=== PATIENT | female | born 1945 | race Caucasian/White ===

== ENCOUNTER → 2019-08-27 | Outpatient (CLI) | payer MEDICARE, OTHER ==
--- NOTE | 2019-08-27 16:06 | Diagnostic Imaging Report ---
EXAM: Bone mineral density study 08/27/2019 12:22 PM INDICATION: ^MENOPAUSE/OSTEOPOROSIS COMPARISON: Previous DEXA 07/18/2015. Baseline DEXA 07/18/2015 FINDINGS: Evaluation of the left hip and lumbar spine was performed. The study is technically adequate. The patient's fracture risk is compared to an age-matched control. The patient denies prior surgery/fracture of the spine, hips or forearm. LEFT HIP * Femoral neck bone mineral density: 0.758 gm/cm2, T-score is -0.8, Z-score is 1.2. * Total bone mineral density: 0.837 gm/cm2, T-score is -0.9, Z-score is 0.9. * BMD change versus baseline is +4.1% LUMBAR SPINE * Total bone mineral density: 0.961 gm/cm2, T-score is -0.8, Z-score is 1.6. * BMD change versus baseline is +3.0% IMPRESSION: 1. Bone mineralization by WHO Classification is normal, the fracture risk is not increased. 2. Since the previous (baseline) exam there has been significant improvement of bone mineral density at the left hip and lumbar spine. Signed by: Dr. Montez Macdonald M.D. on 08/27/2019 4:03 PM
--- NOTE | 2019-09-09 10:01 | Diagnostic Imaging Report ---
#[id number] - MGSCRBIL #BILATERAL DIGITAL SCREENING MAMMOGRAM WITH CAD: 08/27/2019 CLINICAL: Routine screening. Comparison is made to exams dated: 07/18/2015 mammogram - [facility] and 04/29/2012 mammogram - [facility]. There are scattered fibroglandular elements in both breasts. Current study was also evaluated with a Computer Aided Detection (CAD) system. There are benign calcifications in both breasts. There also are post operative findings in both breasts. No significant masses, calcifications, or other findings are seen in either breast. There has been no significant interval change. IMPRESSION: BENIGN There is no mammographic evidence of malignancy. A 1 year screening mammogram is recommended. The patient will be notified by letter of the results. BRYANT diop/rayne:09/07/2019 15:20:45 Wrapping Clerk: Lili MALDONADO(Barb)(Kayley), [facility] letter sent: Compared to Prior B9 Mammogram BI-RADS: 2 Benign
== END ==
LOC: MAMMO 12:14
PROVIDERS: ATTEND Internal Medicine
DX: Z12.31 Encounter for screening mammogram for malignant neoplasm of breast (principal); M81.0 Age-related osteoporosis without current pathological fracture
CPT/HCPCS: 77067; 77080

== ENCOUNTER → 2019-10-11 | Outpatient (CLI) | payer MEDICARE, OTHER ==
[~2019-10-11] MED LIST: IOPAMIDOL 370 MG/ML 200 ML INFUS..BTL INJ ONE; SODIUM CHLORIDE 0.9% 250ML 250 ML ONE
[2019-10-11 11:48] LABS: CREATININE, SERUM 1.01 mg/dL (0.57-1.11)
--- NOTE | 2019-10-12 09:03 | Diagnostic Imaging Report ---
EXAMINATION: CT of the abdomen and pelvis with contrast. TECHNIQUE: Spiral CT images of the abdomen and pelvis were performed from the lung bases to the lesser trochanters before and after the intravenous administration of 150 cc of Isovue-370 and the oral administration of water. Imaging was performed in prone position per CT urogram protocol Coronal and sagittal reformatted images were obtained. COMPARISON: None. CLINICAL HISTORY:Recurrent UTIs, hematuria. Patient also reports history of multiple prior back surgeries, deep venous thrombosis status post IVC filter placement, hysterectomy, cholecystectomy, and prior bladder surgeries. DISCUSSION: ABDOMEN/PELVIS: LOWER THORAX:Subsegmental atelectasis in the dependent portions of the right middle lobe and lingula. Lung bases are otherwise unremarkable. HEPATOBILIARY: No focal hepatic lesions. No intra-or extrahepatic biliary ductal dilation. The gallbladder has been removed with metallic clips in the gallbladder fossa. SPLEEN: No splenomegaly. PANCREAS: No focal masses or ductal dilatation. ADRENALS: No adrenal nodules. KIDNEYS/URETERS: No renal, ureteral, or bladder calculi. Excretory/urographic phase images show no filling defects within the upper collecting systems, opacified segments of ureter, or urinary bladder. Short segments of the proximal left and distal right ureter are unopacified, likely related to peristalsis, as no adjacent soft tissue mass is appreciated. No solid or cystic renal mass lesion. PELVIC ORGANS/BLADDER: The urinary bladder is unremarkable. Uterus is not identified in keeping with reported hysterectomy. No adnexal mass. PERITONEUM/RETROPERITONEUM: No ascites. No pneumoperitoneum. LYMPH NODES: No pelvic sidewall, retroperitoneal, or mesenteric lymphadenopathy. VESSELS: There is mild atherosclerotic calcification of the abdominal aorta and renal artery ostia without aneurysmal dilatation. Portal vein, splenic vein, and central superior mesenteric vein are patent. Left common and external iliac venous stent is noted, along with an infrarenal IVC filter. GI TRACT: The large bowel is notable for multiple sigmoid diverticula without wall thickening or adjacent inflammatory change. There is no small bowel dilatation to suggest obstruction. Moderate sliding hiatal hernia. BONES AND SOFT TISSUE: No osseous destructive lesions. Multilevel degenerative disc changes and facet arthropathy of the lumbar spine. No soft tissue abnormalities. IMPRESSION: No urolithiasis or urothelial mass lesion to explain the reported history of hematuria. No acute intra-abdominal or pelvic CT abnormalities. Incidental findings include large bowel diverticulosis without evidence of diverticulitis, moderate sliding hiatal hernia, and changes of left iliac venous stenting and infrarenal IVC filter placement. Signed by: Dr. Renny Pittman M.D. on 10/12/2019 9:00 AM
== END ==
LOC: CT 11:06
PROVIDERS: ATTEND Urology
DX: R31.21 Asymptomatic microscopic hematuria (principal)
CPT/HCPCS: 36415; 74178; 82565; 84520; J7050; Q9967

== ENCOUNTER 2019-11-02 13:00 | Outpatient (RCR) | payer MEDICARE, OTHER ==
[2019-11-10] MEDS ORDERED: RAMIPRIL5 MG PO (15:48)
[2019-11-10] MEDS ORDERED: METOPROLOL SUCC25 MG PO (15:49)
[2019-11-10] MEDS ORDERED: METFORMIN HCL500 MG PO (15:49)
[2019-11-10] MEDS ORDERED: XARELTO20 MG PO (15:49)
[2019-11-10] MEDS ORDERED: MULTI-VITAMIN1 EACH PO (15:50)
[2019-11-10] MEDS ORDERED: [UNRECOGNIZED DRUG - OTHER] (15:50)
[2019-11-10] MEDS ORDERED: [UNRECOGNIZED DRUG - OTHER] PO (15:51)
[2019-11-10] MEDS ORDERED: DIGESTIVE ENZY1 EAC3 PO (15:51)
[2019-11-10] MEDS ORDERED: VIT E PO (15:52)
[2019-11-10] MEDS ORDERED: MAGNESIUM CALCIUM PO (15:52)
[2019-11-10] MEDS ORDERED: LUTEIN20 M1 PO (15:53)
[2019-11-10] MEDS ORDERED: NATTOKINASE PO (15:54)
[2019-11-10] MEDS ORDERED: [UNRECOGNIZED DRUG - OTHER] PO (15:55)
== END 2019-11-06 ==
LOC: PT 13:00
PROVIDERS: ATTEND Internal Medicine
DX: S60.221A Contusion of right hand, initial encounter (principal); R29.6 Repeated falls
CPT/HCPCS: 97139

== ENCOUNTER → 2019-11-12 | Day surgery (SDC) | payer MEDICARE, OTHER ==
[2019-11-10 12:41] LABS: BASOPHILS % 0.8 % (0.0-1.0); EOSINOPHILS # (AUTO) 0.2 (0.0-0.4); EOSINOPHILS % 3.5 % (0.0-6.0); HEMATOCRIT 37.5 % (34.2-44.1); HEMOGLOBIN 12.6 g/dL (12.0-16.0); LYMPHOCYTES # (AUTO) 2.1 (1.0-3.2); MEAN CORPUSCULAR HEMOGLOBIN 32.8 pg (28-32); MEAN CORPUSCULAR HGB CONC 33.6 g/dL (31-35); MEAN CORPUSCULAR VOLUME 97.7 fL (81-99); MONOCYTES # (AUTO) 0.5 (0.2-0.8); MONOCYTES % 9.8 % (4.4-11.3); NEUTROPHILS # (AUTO) 2.3 (2.1-6.9); NEUTROPHILS % 44.7 % (38.7-80.0); PLATELET COUNT 308 x10e3/uL (140-360); RED BLOOD COUNT 3.84 x10e6/uL (3.6-5.1)
[2019-11-10 12:59] LABS: INR 0.86; PROTHROMBIN TIME 12.2 seconds (11.9-14.5)
[2019-11-10 13:00] LABS: PARTIAL THROMBOPLASTIN TIME 24.7 seconds (23.8-35.5)
[2019-11-10 13:06] LABS: ANION GAP 11.3 mmol/L (8-16); CALCIUM 9.7 mg/dL (8.4-10.2); CREATININE, SERUM 0.94 mg/dL (0.57-1.11); POTASSIUM 4.3 mmol/L (3.5-5.1)
--- NOTE | 2019-11-10 13:30 | Diagnostic Imaging Report ---
EXAMINATION: CHEST 2 VIEWS INDICATION: Pre-operative COMPARISON: None FINDINGS: LINES/TUBES:None LUNGS:The lungs are well-inflated. No focal consolidation or pulmonary edema. PLEURA:No pleural effusion or pneumothorax. MEDIASTINUM:The cardiomediastinal silhouette appears normal in size and shape. BONES/SOFT TISSUES:No acute osseous injury. Postoperative findings of both shoulders with hardware intact. Old healed right rib fracture. ABDOMEN:No free air under the diaphragm. IMPRESSION: No focal pneumonia or pulmonary edema. Signed by: Rebecca Wagner MD on 11/10/2019 1:27 PM
[~2019-11-12] MED LIST changes: +B&O 60MG R/S 60 MG SUPP PR ONE; +DIGESTIVE ENZY1 EAC3 PO; +GENTAMICIN 80MG/NS 100 ML 200 ML IV ONE; +IOPAMIDOL 300MG/ML 50ML INFUS..BTL IV ONE; -IOPAMIDOL 370 MG/ML 200 ML INFUS..BTL INJ ONE; +IOTHALAMATE MEGLUMINE 17.20% 250 ML BTL ONE; +LIDOCAINE HCL 2% LOCAL INJ 5 ML SDV VIAL INJ ONE; +LUTEIN20 M1 PO; +MAGNESIUM CALCIUM PO; +METFORMIN HCL500 MG PO; +METOPROLOL SUCC25 MG PO; +MIDAZOLAM HCL 2 MG/2 ML VIAL ONE; +MULTI-VITAMIN1 EACH PO; +NATTOKINASE PO; +ONDANSETRON HCL INJ 2MG/ML 2ML 2 MG/ML VIAL ONE; +PROPOFOL IV EMULSION 10 MG/ML 20 ML VIAL ONE; +RAMIPRIL5 MG PO; +SEVOFLURANE INHAL SOLN 250 ML PEN BTL ONE; -SODIUM CHLORIDE 0.9% 250ML 250 ML ONE; +VIT E PO; +XARELTO20 MG PO; +[UNRECOGNIZED DRUG - OTHER]; +[UNRECOGNIZED DRUG - OTHER] PO; +[UNRECOGNIZED DRUG - OTHER] PO
--- NOTE | 2019-11-12 09:45 | NUR ---
SPIRITUAL CARE - Pre-Surgery Assessment: Pt in bed. Pt's at bedside. Pt reported supportive attention from family and friends. Intervention: I provided pastoral presence, hospitality, and sympathetic listening. I acquainted pt with availability of sql server developer while hospitalized. Outcome: Pt expressed appreciation for visit. No need for follow up indicated at this time. [facility] Department O: [phone]
[2019-11-12 12:15] VITALS: BP 144/82
--- NOTE | 2019-12-05 20:12 | Operative Report ---
DATE OF PROCEDURE: 11/12/2019 SURGEON: Emiliano Killian MD PREOPERATIVE DIAGNOSES: 1. Urinary tract infection. 2. Microscopic hematuria. POSTOPERATIVE DIAGNOSES: 1. Urinary tract infection. 2. Microscopic hematuria. 3. 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 4. Atrophic (senile) vaginitis. 5. Urethral caruncle. 6. No evidence of bladder diverticulum. OPERATIONS PERFORMED: 1. Cystourethroscopy with bilateral ureteral catheterization and retrograde ureteropyelography. 2. Retrograde ureteropyelography. 3. Interpretation of cystography. 4. Pelvic examination under anesthesia. ANESTHESIA: General. COMPLICATIONS: None. CLINICAL SUMMARY: Heather Shahid is a 73-year-old woman with the above preoperative diagnoses. She is status post cystocele repair x2. She has a "known" three bladder diverticula. The patient is brought for the above procedures. She is aware of the risks of bleeding, infection, injury to adjacent structures, need for additional procedures and elected to proceed. OPERATIVE PROCEDURE IN DETAIL: Informed consent was verified. Heather Shahid was properly identified and taken to the operating room, placed on the cystoscopy table in supine position. Anesthesia was uneventfully begun. The patient was then carefully gently repositioned in dorsal lithotomy position with all pressure points well padded. Her genitalia were prepared and draped in usual sterile fashion. The cystoscope sheath was inserted in the patient's urethra and the bladder was drained. Contrast was then injected by the cystoscope sheath. We performed cystography. Interpretation of cystography, the bladder recio were relatively smooth. There were no trabeculations. There was no evidence of vesicoureteric reflux. Panendoscopy of the bladder revealed grade 1-2 trabeculations, but no tumors, no stones, and no diverticula. An 8-Mongolian catheter was cannulated to each ureter and retrograde ureteropyelography were performed. Interpretation of retrograde ureteropyelography contrast was instilled in retrograde fashion bilaterally. There were no tumors, no stones, and no diverticula. Unobstructed drainage was observed fluoroscopically. The patient's bladder was then drained. The cystoscope was withdrawn. Pelvic examination under anesthesia revealed a grade 2-3 rectocele with atrophic vaginitis. There was urethral caruncle. There was a short anterior vaginal wall. There were no suspicious mucosal lesions that could be obvious. No palpable pelvic masses could be appreciated. The patient was then uneventfully reversed from anesthesia and taken to recovery room in stable condition. No complications during the procedure. The patient tolerated the procedure well. Explicit postop instructions were given. We will follow the patient up in the office. Emiliano Killian MD [place]/MODL /[id number] cc: Darnell Corrales MD
== END | disposition home or self-care (01) ==
LOC: OR 08:26
PROVIDERS: ATTEND Urology
DX: N39.0 Urinary tract infection, site not specified (principal); N95.2 Postmenopausal atrophic vaginitis; N36.2 Urethral caruncle; N31.2 Flaccid neuropathic bladder, not elsewhere classified; N39.46 Mixed incontinence; N81.89 Other female genital prolapse; N32.89 Other specified disorders of bladder; R35.1 Nocturia; N32.3 Diverticulum of bladder; E66.9 Obesity, unspecified; G89.29 Other chronic pain; G47.33 Obstructive sleep apnea (adult) (pediatric); I10 Essential (primary) hypertension; E78.5 Hyperlipidemia, unspecified; E11.9 Type 2 diabetes mellitus without complications; K21.9 Gastro-esophageal reflux disease without esophagitis; K44.9 Diaphragmatic hernia without obstruction or gangrene; R05 Cough; Z88.6 Allergy status to analgesic agent; Z88.1 Allergy status to other antibiotic agents; Z88.2 Allergy status to sulfonamides; Z91.048 Other nonmedicinal substance allergy status; Z88.8 Allergy status to other drugs, medicaments and biological substances; Z01.810 Encounter for preprocedural cardiovascular examination; Z01.812 Encounter for preprocedural laboratory examination; Z01.818 Encounter for other preprocedural examination; Z79.02 Long term (current) use of antithrombotics/antiplatelets; Z86.718 Personal history of other venous thrombosis and embolism; Z84.1 Family history of disorders of kidney and ureter
CPT/HCPCS: 36415 ×2; 52005; 71046; 74420; 80048; 82948; 85025; 85610; 85730; 93005; C1758; J1580; J2001; J2250; J2405; J2704; Q9958; Q9967

== ENCOUNTER 2019-11-16 13:00 | Outpatient (RCR) | payer MEDICARE, OTHER ==
[~2019-11-16 13:00] MED LIST changes: -B&O 60MG R/S 60 MG SUPP PR ONE; -GENTAMICIN 80MG/NS 100 ML 200 ML IV ONE; -IOPAMIDOL 300MG/ML 50ML INFUS..BTL IV ONE; -IOTHALAMATE MEGLUMINE 17.20% 250 ML BTL ONE; -LIDOCAINE HCL 2% LOCAL INJ 5 ML SDV VIAL INJ ONE; -MIDAZOLAM HCL 2 MG/2 ML VIAL ONE; -ONDANSETRON HCL INJ 2MG/ML 2ML 2 MG/ML VIAL ONE; -PROPOFOL IV EMULSION 10 MG/ML 20 ML VIAL ONE; -SEVOFLURANE INHAL SOLN 250 ML PEN BTL ONE
== END 2019-12-07 ==
LOC: PT 13:00
PROVIDERS: ATTEND Internal Medicine
DX: S60.221A Contusion of right hand, initial encounter (principal); R29.6 Repeated falls
CPT/HCPCS: 97139

== ENCOUNTER → 2020-10-05 | Outpatient (CLI) | payer MEDICARE, OTHER | LOC: US 14:22 | PROVIDERS: ATTEND Urology | DX: R31.21 Asymptomatic microscopic hematuria (principal) | CPT/HCPCS: 74018; 76770 ==

== ENCOUNTER 2024-11-29 11:50 | Emergency (ER) | payer MEDICARE, OTHER ==
[~2024-11-29] VITALS: Ht 167.6 cm; Wt 91.2 kg
[2024-11-29 12:11] VITALS: PULSE 67; RESP 20; TEMP 97.3
[2024-11-29 14:22] VITALS: BP 169/80; PULSE 62; RESP 20; O2SAT 95
== END 2024-11-29 14:38 | disposition home or self-care (01) ==
LOC: FSED 12:23
DX: S92.514A Nondisplaced fracture of proximal phalanx of right lesser toe(s), initial encounter for closed fracture (principal); W01.198A Fall on same level from slipping, tripping and stumbling with subsequent striking against other object, initial encounter; Y93.01 Activity, walking, marching and hiking; Y92.89 Other specified places as the place of occurrence of the external cause; I10 Essential (primary) hypertension
CPT/HCPCS: 99283

== ENCOUNTER → 2024-12-16 | Outpatient (REF) | payer MEDICARE, OTHER | LOC: RAD 09:07 | PROVIDERS: ATTEND Internal Medicine | DX: Z01.818 Encounter for other preprocedural examination (principal) | CPT/HCPCS: 71046; 93005 ==